=== PATIENT | male | born 1975 | race African-American/Black ===

== ENCOUNTER 2023-12-16 02:48 | Emergency (ER) | payer BC ==
[~2023-12-16] VITALS: Ht 175.3 cm; Wt 105.0 kg
[2023-12-16 03:12] VITALS: O2SAT 98
[2023-12-16] MEDS: MAGNESIUM/ALUMINUM HYDROXIDE/SIMETHICONE 30ML UDC PO ONE (04:33)
[2023-12-16] MEDS: FAMOTIDINE 20MG TABLET PO ONE (04:33)
[2023-12-16] MEDS: KETOROLAC 30MG/ML VIAL IM ONE (04:33)
[2023-12-16 04:34] LABS: BASOPHILS % 0.4 % (0.0-2.0); EOSINOPHILS % 1.1 % (0.0-5.0); HEMATOCRIT. 44.7 % (42.0-52.0); HEMOGLOBIN. 14.9 g/dL (14.0-18.0); LYMPHOCYTES % 14.7 % (20.0-50.0); MEAN CORPUSCULAR HEMOGLOBIN 28.2 pg (28.0-32.0); MEAN CORPUSCULAR HGB CONC 33.4 g/dL (31.0-37.0); MEAN CORPUSCULAR VOLUME 84.4 fL (80.0-94.0); MONOCYTES % 5.3 % (2.0-8.0); NEUTROPHILS % 78.5 % (40.0-76.0); PLATELET 306 x1000/uL (130-400); RED BLOOD CELL COUNT 5.29 mill/uL (4.7-6.1); RED CELL DISTRIBUTION WIDTH 14.6 % (11.6-14.6); WHITE BLOOD COUNT 7.4 x1000/uL (4.5-11.0)
[2023-12-16 04:38] LABS: CHLORIDE 108 mEq/L (98-107); SODIUM 141 mEq/L (136-145)
[2023-12-16 04:39] LABS: CARBON DIOXIDE 29 mEq/L (21-32)
[2023-12-16 04:40] LABS: CALCIUM 9.3 mg/dL (8.7-10.4)
[2023-12-16 04:44] LABS: CREATININE 1.2 mg/dL (0.6-1.3); GLUCOSE 107 mg/dL (70-105); UREA NITROGEN BLOOD 8 mg/dL (9-23)
[2023-12-16 04:45] LABS: TROPONIN I HIGH SENSITIVITY 4 ng/L (3.0-53)
[2023-12-16] MEDS ORDERED: FAMO-135 MT (05:21)
[2023-12-16 05:46] VITALS: BP 159/88; PULSE 67; RESP 18; TEMP 36.72516; O2SAT 98
== END 2023-12-16 05:49 | disposition home or self-care (01) ==
LOC: ER 03:03
DX: R07.89 Other chest pain (principal); I10 Essential (primary) hypertension
CPT/HCPCS: 99285; 71045; 80048; 83690; 85025; 84484; 36415; 93005; 96372; J1885